=== PATIENT | female | born 1960 | race Caucasian/White ===

== ENCOUNTER 2018-12-13 12:18 | Emergency (ER) | payer MEDICAID, SELFPAY ==
[2018-12-13 12:19] VITALS: BP 127/69; PULSE 60; RESP 18; TEMP 36.6; O2SAT 98; BMI 25.9
--- NOTE | 2018-12-13 15:07 | ED.DCSUM_ITS ---
History of Present Illness Chief Complaint: Abscess Narrative: Patient presenting for evaluation secondary to an abscess. Patient reports that over the course of about the last 3 days she is noticed a lump growing on the back of her neck. She reports that it is painful to touch. She denies any constitutional symptoms. Patient states that she was seen at [place] yesterday but did not see a doctor, and was told to continue conservative management. Patient states that is gotten larger, now has some foul-smelling drainage. Pain is increased. She has had a history of these in the past that have required incision and drainage. Review of systems otherwise negative. Past Medical History - Allergies and Home Meds Allergies/Adverse Reactions: Allergies codeine Adverse Reaction (Verified 12/13/18 12:21) Other Primary Care Physician: Care Physician,No Primary [Primary Care Provider] - Past Medical History: - - Prior abscess Smoking Status: Former smoker Review of Systems General: Denies: Fever Skin: Reports: Abscess Physical Exam Vital Signs/Narrative: Vital Signs Temp Pulse Resp BP Pulse Ox 12/13/18 12:19 97.9 F 60 18 127/69 H 98 Inital Vital Signs reviewed: Yes General: Well nourished, Well developed, No Acute Distress Head: Normocephalic, Atraumatic Eyes: Perrl, EOMI ENT: Moist mucous membranes, No rhinorrhea Neck: Supple, - - Over the patient's posterior neck is approximately a 6 cm area of fluctuance with a minimal amount of overlying erythema. There is active purulent drainage. Cardiovascular: Regular rate, Regular rhythm, No murmurs Respiratory: No distress, CTA bilaterally, Chest nontender Abdomen: Soft, Nontender, Nondistended, Normal bowel sounds Back: Nontender, Normal Inspection Extremities: Nontender, No edema Skin: Normal color, No rash Neurological: Alert, Oriented x3, Cranial nerves II-XII grossly intact, Normal Strength, Normal Sensation Psychological: Normal affect, Normal Mood Diagnostic/Tx/Re-eval - Medical Decision Making Patient presented secondary to an abscess. It was drained as noted in the procedure note. Patient tolerated this well. Procedures Procedure(s): Patient was placed in a seated position on the end of the bed. Chux pads were placed over the patient's shoulders. Patient's wound was cleansed with alcohol preps, and that was anesthetized using a total of 5 cc of 1% lidocaine using a field block. The abscess was then incised using a 11 blade, 1 cm stab incision. A copious amounts of purulent foul-smelling material was expressed. Loculations were broken up with hemostats, and additional copious material was then expressed. Wound was left open to continue draining. ED Disposition - Plan for ED Patient: Disposition: Home or Assisted Living Diagnosis: Abscess Instructions: ABSCESS, Incision and Drainage Referrals: Clint Mondragon MD [NON-STAFF] - 3-5 Days
== END 2018-12-13 15:20 | disposition home or self-care (01) ==
PROVIDERS: Emergency Provider Emergency Medicine
DX: L02.11 Cutaneous abscess of neck (principal); Z87.891 Personal history of nicotine dependence
CPT/HCPCS: 10060; 99282